=== PATIENT | female | born 1990 | race Caucasian/White ===

== ENCOUNTER 2017-10-21 07:51 | Observation (INO) ==
[2017-10-21 04:10] VITALS: BP 133/59
[2017-10-21 04:14] LABS: Bilirubin,Urine Negative (Negative); Blood,Urine Negative (Negative); Clarity,Urine Cloudy (Clear); Color,Urine Yellow (Yellow); Glucose,Urine (UA) Normal (Normal); Ketones,Urine Negative (Negative); Leukocyte Esterase,Urine Small (Negative); Nitrite,Urine Negative (Negative); Protein,Urine Negative (Neg-Trace); Urobilinogen,Urine Normal (Normal)
[2017-10-21 04:17] LABS: Bacteria,Urine Moderate per hpf (None-Few); Hyaline Casts,Urine None Seen per lpf (None-Few); Squamous Epithelial Cell,Urine Many per lpf (None-Few)
[2017-10-21 04:23] LABS: Amphetamine Screen,Urine Negative ng/mL (Cutoff=1000); Barbiturate Screen,Urine Negative ng/mL (Cutoff=200); Benzodiazepines Screen,Urine Negative ng/mL (Cutoff=200); Cannabinoid Screen,Urine Negative ng/mL (Cutoff = 50); Cocaine Screen,Urine Negative ng/mL (Cutoff= 300); Opiate Screen,Urine Negative ng/mL (Cutoff=300); Phencyclidine Screen,Urine Negative ng/mL (Cutoff=25)
--- NOTE | 2017-10-21 05:30 | OB/GYN Progress Note ---
Date of Encounter: 10/21/17 Time of Encounter: 05:19 - Assessment and Plan (1) 29 weeks gestation of Current Visit: Yes Status: Acute Pt sees Dr. Saucedo at [facility] for care. Unable to obtain records at this time because [facility] doesn't yet have the records from the physician's private office. (2) History of delivery, currently in third trimester Current Visit: Yes Status: Acute Pt is not on progesterone. Her earliest delivery was 32 weeks. (3) Placenta previa antepartum in third trimester Current Visit: Yes Status: Acute Unable to perform SVE at this time. SSE with cervix visually closed. Pt denies any evaluation for accreta (4) Previous delivery affecting Current Visit: Yes Status: Acute c/s x2 (5) Opiate abuse, continuous Current Visit: Yes Status: Acute Pt is on suboxone (6) Hepatitis C Current Visit: Yes Status: Acute Qualifiers: Viral hepatitis chronicity: chronic Hepatic coma status: without hepatic coma Qualified Code(s): B18.2 - Chronic viral hepatitis C (7) uterine contractions in third trimester, antepartum Current Visit: Yes Status: Acute Unable to assess SVE. FFN collected. Will await those results given cervix is visually closed on SSE. US for placental location ordered. Subjective - Subjective Interval history: 27 year-old presenting at 29w6d with c/o contractions that started around 0200 this am and have gotten stronger since. She was at work at [employer] and was brought to triage via ambulance. She reports scant amounts of clear mucus discharge. No gushes of fluid. No heavy bleeding but she does have spotting throughout this due to a placenta previa. She has a history of 2 prior deliveries. This has also been complicated by opiate use (on suboxone now), hepatitis C, and history of seizures. Antepartum ROS: vaginal bleeding (spotting throughout ), movement normal, contractions, no loss of fluid Objective - Vital Signs Vital Signs: Vital Signs Temp Pulse Resp BP 10/21/17 04:00 97.9 F 85 16 133/59 Intake and Output 10/20/17 10/20/17 10/21/17 15:59 23:59 07:59 Other: Weight 68 kg Patient Weight 10/21/17 23:59 Weight 68 kg - Exam FHR: category 1 FHR comments: 135 BPM, reactive NST Auscultation: bilateral: normal Abdomen: Present: soft, gravid. Absent: tenderness Uterus: Absent: tenderness Cervical dilation: visually closed. No SVE due to placenta previa. Comments: Thin, white discharge in vault. FFN collected. Pt denies intercourse since Wednesday. Vaginosis panel collected. - Labs Labs: Abnormal lab results Urine Clarity Cloudy (Clear) A 10/21/17 03:50 Ur Leukocyte Esterase Small (Negative) H 10/21/17 03:50 Urine Microscopic RBC 3-5 per hpf (0-3) H 10/21/17 03:50 Urine Microscopic WBC 5-15 per hpf (0-3) H 10/21/17 03:50 Ur Squamous Epith Cells Many per lpf (None-Few) H 10/21/17 03:50 Urine Bacteria Moderate per hpf (None-Few) H 10/21/17 03:50
[2017-10-21 06:47] LABS: Candida DNA Not Detected (Not Detect); Gardnerella DNA ***DETECTED*** (Not Detect); Trichomonas DNA Not Detected (Not Detect)
[2017-10-21 08:38] LABS: Candida DNA Not Detected (Not Detect); Gardnerella DNA ***DETECTED*** (Not Detect); Trichomonas DNA Not Detected (Not Detect)
--- NOTE | 2017-10-21 11:05 | OB/GYN Progress Note ---
Date of Encounter: 10/21/17 Time of Encounter: 11:03 - Assessment and Plan (1) 30 weeks gestation of Current Visit: Yes Status: Acute (2) Hepatitis C Current Visit: Yes Status: Acute Qualifiers: Viral hepatitis chronicity: chronic Hepatic coma status: without hepatic coma Qualified Code(s): B18.2 - Chronic viral hepatitis C (3) History of delivery, currently in third trimester Current Visit: Yes Status: Acute (4) Opiate abuse, continuous Current Visit: Yes Status: Acute (5) uterine contractions in third trimester, antepartum Current Visit: Yes Status: Acute Requesting to transfer to [place] [facility] for the rest of her care. She states she would like to join the [facility] through our clinic. Instructions given and cautioned that she may not be able to transfer at her gestation. labor precautions given Advised to follow up with her OB early next week Discharge home. (6) Previous delivery affecting Current Visit: Yes Status: Acute Subjective - Subjective Principal diagnosis: contractions Interval history: Ms. Galaviz now reports that her contractions have slowed. She reports she feels well enough to go home. Antepartum ROS: new complaints, movement normal, contractions, no loss of fluid, no vaginal bleeding Objective - Vital Signs Vital Signs: Vital Signs Temp Pulse Resp BP 10/21/17 04:00 97.9 F 85 16 133/59 Intake and Output 10/20/17 10/21/17 10/21/17 23:59 07:59 15:59 Other: Weight 68 kg Patient Weight 10/21/17 23:59 Weight 68 kg - Exam FHR: auscultation normal, category 1 FHR comments: Baseline 140 Moderate variability Accelerations present 10x10 Few variable decelerations FHR category I [place] shows irritability Auscultation: bilateral: normal Abdomen: Present: normal appearance, soft, gravid Uterus: Present: normal, firm - Labs Labs: Abnormal lab results Urine Clarity Cloudy (Clear) A 10/21/17 03:50 Ur Leukocyte Esterase Small (Negative) H 10/21/17 03:50 Urine Microscopic RBC 3-5 per hpf (0-3) H 10/21/17 03:50 Urine Microscopic WBC 5-15 per hpf (0-3) H 10/21/17 03:50 Ur Squamous Epith Cells Many per lpf (None-Few) H 10/21/17 03:50 Urine Bacteria Moderate per hpf (None-Few) H 10/21/17 03:50 [place] DNA Probe DETECTED (Not Detect) A 10/21/17 07:33
== END 2017-10-21 11:09 | disposition home or self-care (01) ==
LOC: 1NENULAB
PROVIDERS: ADMIT Registered Nurse; ATTEND Registered Nurse

== ENCOUNTER 2018-01-03 18:13 | Inpatient (IN) ==
[2018-01-03 17:17] LABS: Amphetamine Screen,Urine Negative ng/mL (Cutoff=1000); Barbiturate Screen,Urine Negative ng/mL (Cutoff=200); Benzodiazepines Screen,Urine Negative ng/mL (Cutoff=200); Cannabinoid Screen,Urine Negative ng/mL (Cutoff = 50); Cocaine Screen,Urine Negative ng/mL (Cutoff= 300); Opiate Screen,Urine Negative ng/mL (Cutoff=300); Phencyclidine Screen,Urine Negative ng/mL (Cutoff=25)
[~2018-01-03 18:13] MED LIST: CeFAZolin Premix DUPLEX 2,000 MG/50 ML BAG IVPB ONE; Famotidine 20 MG/2 ML VIAL IVP ONE; Metoclopramide 10 MG/2 ML VIAL IVP ONE; Oxytocin 20 units/ LR 1000 mL 20 UNIT/1,000 ML BAG IVC ONE; Oxytocin 20 units/ LR 1000 mL 20 UNIT/1,000 ML BAG IVC SCH; Ringers Solution, Lactated 1,000 ML IVC ONE
[2018-01-03 18:17] LABS: Basophils % 0.2 %; Eosinophils # 0.1 K/mcL (0.0-0.6); Hematocrit 33.3 % (35.3-44.9); Hemoglobin 10.6 g/dL (11.5-15.4); Immature Granulocytes % 0.3 % (0-4); Lymphocytes # 3.9 K/mcL (0.6-4.6); Lymphocytes % 31.8 %; Mean Corpuscular HGB Conc 31.8 g/dL (31.6-35.5); Mean Corpuscular Hemoglobin 27.4 pg (28.0-33.3); Mean Platelet Volume 11.2 fL (9.4-12.4); Monocytes # 0.7 K/mcL (0.0-1.3); Monocytes % 5.6 %; Neutrophils # 7.5 K/mcL (1.6-8.9); Platelet Count 282 K/mcL (140-400); Red Blood Count 3.87 M/mcL (3.82-4.97); Red Cell Distribution Width 13.7 % (11.5-14.5); Segmented Neutrophils % 61.1 %
--- NOTE | 2018-01-03 21:58 | OB/GYN History & Physical ---
Date of Encounter: 01/03/18 Time of Encounter: 21:48 Assessment and Plan (1) 39 weeks gestation of Current visit: Yes Status: Acute Pt at 39w6d gestation by 18 week u/s in ER presents in early labor. She has had limited PNC in [place]. Given fact that she is in early labor at nearly 40 weeks with limited care and 2 prior c-sections, will proceed with Rpt LTCS. (2) Hepatitis C Current visit: No Status: Acute Qualifiers: Viral hepatitis chronicity: chronic Hepatic coma status: without hepatic coma Qualified Code(s): B18.2 - Chronic viral hepatitis C (3) Opiate abuse, continuous Current visit: No Status: Acute (4) Previous delivery affecting Current visit: No Status: Acute Plan repeat, consent obtained. History of Present Illness Chief complaint: Labor, 39 weeks 6 days EGA HPI: Ms. Galaviz is a 27 year old female at 39w6d by 18 week u/s presents with c/o strong uc's. She denies vb or lof. has been complicated by limited PNC. Her initial visit was in our ER for spotting when init u/s was performed estabishing EDC. She also has opiate dependenece and hep C and is on Suboxone. She smokes 1PPD. Past Med Surg Social Fam HX - Past Medical History Source: patient, old records reviewed Medical history: no medical history, seizures Additional medical history: pt states had 100 seizures in life took meds when younger not on anything now Psychiatric history: no psych history - Past Surgical History Surgical History: , cholecystectomy Additional surgical history: pins placed then later removed in left hand - Social History Smoking Status: Current every day smoker Packs per day: 1/5 Smokeless Tobacco Status: No Alcohol use: none Drug use: other - Family History Sister Living Status: Still Living Hx Family Cardiac Disorders: No Hx Family Respiratory Disorders: No Hx Family Cancer: No Hx Family GI Disorders: No Hx Family Genitourinary Disorders: No Hx Family Endocrine Disorder: No Hx Family Musculoskeletal Disorders: No Hx Family Neuromuscular Disorders: No Hx Family Neurologic Disorders: No Hx Family HEENT Disorders: No Hx Family Autoimmune Disorders: No Hx Family Reproductive Disorders: No Hx Family Psychosocial Disorders: No Hx Family Medical Disorders: No Obstetrical History - Pregnancies : 5 Medications and Allergies Pnv with Ca,No.72/Iron/FA [Pnv Plus Multivit Tab] 1 each PO DAILY 06/11 [History] Buprenorphine HCl/Naloxone HCl [Suboxone 8 mg-2 mg Sl Film] 8 mg PO BID [History] 3 Allergy/AdvReac Type Severity Reaction Status Date / Time No Known Allergies Allergy Verified 01/03/18 16:17 Exam - Constitutional Constitutional: well developed, no acute distress - HEENT HEENT: EOMI, PERRL - Neck Neck exam: full ROM - Lungs Respiratory exam: CTAB - Cardiovascular Cardiovascular exam: RRR - Abdomen Abdomen: Present: gravid - Extremities Deep Tendon Reflex Grade: 2+ Normal - Comments Comments: fundus measures 35 cm (therefore is small for gestational age) Results Result Diagrams: 01/03/18 17:44 Abnormal lab results WBC 12.3 K/mcL (4.3-11.1) H 01/03/18 17:44 Hgb 10.6 g/dL (11.5-15.4) L 01/03/18 17:44 Hct 33.3 % (35.3-44.9) L 01/03/18 17:44 MCH 27.4 pg (28.0-33.3) L 01/03/18 17:44 All other labs normal. - VTE Reasons for not Prescribing Prophylaxis: Treatment not Indicated - Low risk for VTE
--- NOTE | 2018-01-03 23:07 | Anesthesia Evaluation PreOp ---
Date of Encounter: 01/03/18 Time of Encounter: 23:05 - Past History Planned Operation: Repeat csection/spinal Cardiac History: Denies any Significant Hx Pulmonary History: Smoker, Pack/yr (5pk/yr) INTEGRITY ANALYST History: Denies Any Significant HX Other Medical History: Hepatic (HepC), Other (Hx Heroine use until 4 months ago. Subutex use) Anesthesia History: No Prior Anesthetic Complications, Past Anesthesia : Yes Alcohol Use: none Drug use: other Medications and Allergies Pnv with Ca,No.72/Iron/FA [Pnv Plus Multivit Tab] 1 each PO DAILY 06/11 [History] Buprenorphine HCl/Naloxone HCl [Suboxone 8 mg-2 mg Sl Film] 8 mg PO BID [History] 3 Allergy/AdvReac Type Severity Reaction Status Date / Time No Known Allergies Allergy Verified 01/03/18 16:17 - Meds/Allergy Pre-op Review Medications Reviewed: Yes Allergies Reviewed: Yes Beta Blockers on Current Med List: No Anesthesia Results - Labs 01/03/18 17:44 Anesthesia Exam BP 108/67 P 58 R 18 T 36.5C Height: 5'5" Weight: 64.3kg NPO (# of Hours): 8 Pain Scale: 4 Pain Scale Used: Numeric (1 - 10) - HEENT Pupil (Motor): Pupils equal Mallampati: II Teeth: Edentulous Oral Opening: Greater than 3 - INTEGRITY ANALYST LOC: Oriented INTEGRITY ANALYST Motor: Normal RUE, Normal LUE, Normal RLE, Normal LLE, Normal Face INTEGRITY ANALYST Sensory: Normal: RUE, LUE, RLE, LLE, Face - Cardiac Rhythm: Regular Murmur: None JVD: No Carotid Bruit: No - Pulmonary Breath Sounds: bilateral Clear Respiratory Effort: Symmetrical Anesthesia Assess/Plan ASA Score: 2 Modified [place] Scale for Level of Consciousness: Cooperative, oriented, and tranquil Anesthetic Plan: Regional Autologous Blood: No Monitoring Plan: Standard Monitors Recovery Plan: PACU
[2018-01-03] MEDS ORDERED: *HR* HYDROmorphone (PF) 1 MG/ML SYRINGE IVP PRN (23:11)
[2018-01-03] MEDS ORDERED: Naloxone 0.4 MG/ML INJ IVP PRN (23:11)
[2018-01-03] MEDS ORDERED: Acetaminophen IV 1,000 MG/100 ML INFUS..BTL IVPB ONE (23:11)
[2018-01-03] MEDS ORDERED: *HR* Meperidine 25 MG/ML SYRINGE IVP PRN (23:11)
[2018-01-03] MEDS ORDERED: Ondansetron 4 MG/2 ML VIAL IVP ONE (23:11)
[2018-01-03] MEDS ORDERED: *HR* Promethazine 25 MG/ML VIAL IVP PRN (23:11)
[2018-01-03] MEDS ORDERED: Ketorolac 30 MG/ML VIAL IVP ONE (23:11)
[2018-01-03] MEDS ORDERED: Pregabalin 50 MG CAPSULE PO ONE (23:16)
[2018-01-04] MEDS ORDERED: Metoclopramide 10 MG/2 ML VIAL IVP ONE (01:45)
[2018-01-04] MEDS ORDERED: Famotidine 20 MG/2 ML VIAL IVP ONE (01:45)
[2018-01-04] MEDS ORDERED: Ringers Solution, Lactated 1,000 ML ONE (01:50)
[2018-01-04] MEDS ORDERED: CeFAZolin Premix DUPLEX 2,000 MG/50 ML BAG IVPB ONE (02:00)
[2018-01-04] MEDS ORDERED: Bupivacaine/PF 0.75% in Dex 2 ML AMPUL INFILT ONE (02:09)
[2018-01-04] MEDS ORDERED: Lidocaine -MPF 1% 5 ML AMPUL ONE (02:09)
[2018-01-04] MEDS ORDERED: Morphine Sulfate/PF 5mg/10mL Vial ONE (02:13)
[2018-01-04] MEDS ORDERED: Ondansetron 4 MG/2 ML VIAL ONE (02:39)
[2018-01-04] MEDS ORDERED: *HR* Oxytocin 10 UNIT/ML VIAL IM ONE (02:39)
[2018-01-04] MEDS ORDERED: Dexamethasone 4 MG/ML VIAL ONE (02:39)
--- NOTE | 2018-01-04 02:50 | Anesthesia Procedures ---
Date of Encounter: 01/04/18 Time of Encounter: 02:31 Procedures: Anesthesia - Epidural/Spinal Patient ID/Chart reviewed: Yes Patient examined: Yes OB Eval: Gestational age: 40. OB Eval: : 5 OB Eval: Hx Para: 4 OB Eval: Dilated at (cm): 3 OB Eval: Contractions: Non-stressed pattern Consent Obtained: Yes Supplemental Oxygen: None/Room Air Site Prep: Aseptic Technique, Sterile prep and drape, Povidone-Iodine 1% Patient position: upright Local Anesthetic: Lidocaine 1% Amount of Local Anesthetic used: 3 Interspace Used: L3-L4 Loss of Resistance (WALLY): No Blood: No CSF: Yes Paresthesia: No Spinal Needle Gauge: 25 Spinal Dose: Bupivicaine 0.75% 1.6ml morphine 250mcg Procedure: Spinal administered in upright position. Intrathecal dose administered 1st pass without any immediate noted complications. VSS Vitals + FHT's: See anesthesia OR record
--- NOTE | 2018-01-04 03:41 | OB/GYN Procedure Note ---
Section - Date of procedure: 01/04/18 Preop diagnosis: desires repeat , other (Labor, limited care, size less than dates, narcotics addiction, history of prior 2) Post-op diagnosis: same Procedure: section, repeat low transverse Surgeon: Luc Valdes Blood Loss: 300 Was there an assistant professor of spanish present: No Anesthesia Type: Spinal section complications: none Disposition: L&D Recovery Room Specimens: Placenta - (s) A Delivery Date: 01/04/18 Infant Delivery Time: 02:59 Presentation: vertex Gender: Female Viability: Viable Pounds: 5 Ounces: 9 at 1 minute: 8 at 5 minutes: 9 Shoulder Dystocia: not encountered Placenta: spontaneous Cord: 3 umbilical vessels - Narrative Narrative: Patient's 27-year-old 6 para 5 female presents in labor history of prior section 7 active contractions which she is breathing. She denies bleeding or leakage of fluid. She was noted to have small abdomen fundal height was 35 cm. Thinks it may concave a limited care narcotics addiction she is on Suboxone and smoking. Discussed with patient options decision made proceed with repeat section patient was aware operative risks and signed appropriate consent. Description procedure: Patient was taken operating room where spinal anesthesia was administered. She is prepped draped in usual sterile fashion. Bladder was drained of clear urine with Galeano catheter. Once adequate anesthesia was determined scalp was used to make Pfannenstiel skin incision. This was sharply take down the rectus fascia which was incised midline. Fascial incision was extended bilaterally rectus muscle divided in plane was developed and rectus muscles opened distally peritoneum was entered bluntly bladder blade was placed and bladder flap was developed and lower uterine segment. There is some adhesions from the bladder flap and the lower uterine segment which were taken down. Scalpel was used to make a low transverse uterine incision which was extended bluntly bilaterally. Membranes were ruptured clear fluid. Infant was delivered from vertex presentation. Cord was clamped cut and was handed nurse personnel who were in attendance. Placenta was delivered spontaneously uterine cavity was massaged free of all residual tissue. Uterus was closed 0 Vicryl running lock stitch. Second imbricating layer was placed for the first hemostasis was ensured. Again irrigation was performed hemostasis was ensured. Fascia was closed 0 Vicryl running manner. Skin edges reapproximated with 4- 0 Vicryl. All sponge and instruments counts are correct patient was taken recovery in good condition.
[2018-01-04] MEDS ORDERED: Ketorolac 30 MG/ML VIAL IVP ONE (05:45)
[2018-01-04] MEDS ORDERED: Ringers Solution, Lactated 1,000 ML IVC SCH (06:09)
[2018-01-04] MEDS ORDERED: Ondansetron 4 MG/2 ML VIAL IVP PRN (06:09)
[2018-01-04] MEDS ORDERED: Simethicone 80 MG TAB.CHEW PO PRN (06:09)
[2018-01-04] MEDS ORDERED: Sennosides 8.6 MG TABLET PO PRN (06:09)
[2018-01-04] MEDS ORDERED: Oxytocin 20 units/ LR 1000 mL 20 UNIT/1,000 ML BAG IVC SCH (06:09)
[2018-01-04] MEDS ORDERED: Rho Immune Globulin 1,500 UNIT SYRINGE IM ONE (06:09)
[2018-01-04] MEDS ORDERED: Metoclopramide 10 MG/2 ML VIAL IVP PRN (06:09)
[2018-01-04] MEDS: *HR* OxyCODONE/APAP 5/325 TABLET PO PRN ×3 (06:39→20:08)
--- NOTE | 2018-01-04 07:55 | Anesthesia Evaluation Post Op ---
Date of Encounter: 01/04/18 Time of Encounter: 06:00 - Vital Signs Vital Signs: Vital Signs Temperature 98.0 F 01/04/18 06:00 Pulse Rate 48 01/04/18 06:00 Respiratory Rate 14 01/04/18 06:00 Blood Pressure 125/72 01/04/18 06:00 O2 Sat by Pulse Oximetry 99 01/04/18 06:00 Temperature 98.0 F 01/04/18 07:00 Pulse Rate 50 01/04/18 07:00 Respiratory Rate 16 01/04/18 07:00 Blood Pressure 111/68 01/04/18 07:00 O2 Sat by Pulse Oximetry 97 01/04/18 07:00 - Lungs Lungs: Clear Ascult./Percussion - Airway Airway: Non-obstructed - Cardiovascular Regular Rate - Mental Status Mental Status: Alert & Oriented, Answers Appropriately - Pain Pain Scale: 7 (pt pain plan discussed with joshua. Subutex patient) Pain Scale used: Numeric (1 - 10) - Nausea Vomiting Nausea Vomiting: Responds to treatment with oral meds - Hydration Hydration: NPO, Galeano catheter - Discharge PostOp Status: Transfer Patient to floor
[2018-01-04] MEDS: Prenatal Vit/FA 1 EACH TABLET PO SCH (08:06)
[2018-01-04] MEDS: Ibuprofen 600 MG TABLET PO PRN ×2 (08:10→22:12)
[2018-01-04] MEDS ORDERED: *HR* Buprenorphine HCl 8 MG TAB.SUBL SL SCH (09:00)
[2018-01-05] MEDS: *HR* OxyCODONE/APAP 5/325 TABLET PO PRN ×4 (02:20→19:57)
[2018-01-05 04:32] LABS: Basophils % 0.1 %; Eosinophils # 0.1 K/mcL (0.0-0.6); Hemoglobin 10.2 g/dL (11.5-15.4); Immature Granulocytes % 0.4 % (0-4); Lymphocytes # 5.3 K/mcL (0.6-4.6); Lymphocytes % 37.2 %; Mean Corpuscular HGB Conc 31.9 g/dL (31.6-35.5); Mean Corpuscular Hemoglobin 28.2 pg (28.0-33.3); Mean Corpuscular Volume 88.4 fL (83.0-100.0); Mean Platelet Volume 11.2 fL (9.4-12.4); Monocytes # 0.8 K/mcL (0.0-1.3); Monocytes % 5.6 %; Neutrophils # 7.9 K/mcL (1.6-8.9); Platelet Count 264 K/mcL (140-400); Red Blood Count 3.62 M/mcL (3.82-4.97); Red Cell Distribution Width 13.5 % (11.5-14.5); Segmented Neutrophils % 55.7 %
[2018-01-05] MEDS: Prenatal Vit/FA 1 EACH TABLET PO SCH (08:05)
[2018-01-05] MEDS: Ibuprofen 600 MG TABLET PO PRN ×2 (08:05→22:35)
--- NOTE | 2018-01-05 23:22 | OB/GYN Progress Note ---
Date of Encounter: 01/05/18 Time of Encounter: 09:00 - Assessment and Plan (1) delivery delivered Current Visit: Yes Status: Acute Pt meeting POD1 milestones. She reports pain is moderately well controlled. Continue to monitor. Anticipate discharge home POD3-4. (2) Hepatitis C Current Visit: No Status: Acute Qualifiers: Viral hepatitis chronicity: chronic Hepatic coma status: without hepatic coma Qualified Code(s): B18.2 - Chronic viral hepatitis C (3) Opiate abuse, continuous Current Visit: No Status: Acute Subjective - Subjective Patient reports: appetite normal, voiding normally, pain well controlled, ambulating normally Guy: doing well Objective - Vital Signs Latest vital signs: Vital Signs Temp Pulse Resp BP Pulse Ox 01/05/18 19:35 97.9 F 81 12 118/75 98 01/05/18 07:58 97.9 F 73 16 108/63 98 01/04/18 23:45 97.9 F 65 14 104/61 98 - Exam Lungs: bilateral: normal Chest: Normal S1, Normal S2 Extremities: Present: normal Abdomen: Present: soft Incision: Present: dry, intact (no s/sx infection) Uterus: Present: firm - Labs Labs: Laboratory Results - last 24 hr 01/05/18 03:58 WBC 14.2 H RBC 3.62 L Hgb 10.2 L Hct 32.0 L MCV 88.4 MCH 28.2 MCHC 31.9 RDW 13.5 Plt Count 264 MPV 11.2 Immature Gran % 0.4 Seg Neutrophils % 55.7 Lymphocytes % 37.2 Monocytes % 5.6 Eosinophils % 1.0 Basophils % 0.1 Neutrophils # 7.9 Lymphocytes # 5.3 H Monocytes # 0.8 Eosinophils # 0.1 Basophils # 0.0
[2018-01-06] MEDS: *HR* OxyCODONE/APAP 5/325 TABLET PO PRN ×2 (02:10→08:13)
[2018-01-06] MEDS: Prenatal Vit/FA 1 EACH TABLET PO SCH (08:13)
[2018-01-06 09:01] VITALS: BP 106/60
--- NOTE | 2018-01-06 10:38 | Discharge Summary ---
Date of Encounter: 01/06/18 Time of Encounter: 10:36 - Discharge Diagnosis (1) anemia Priority: Secondary Status: Acute Comments: Will discharge home on iron. (2) delivery delivered Priority: Primary Status: Acute Comments: Stable POD #2, meeting all milestones, tolerates diet, pain well managed, desires to start Depopovera for contraception and desires discharge. - Discharge Medications Prescriptions: Ibuprofen [Motrin] 600 mg PO Q6HR PRN #60 tablet PRN Reason: Cramping Docusate [Colace] 100 mg PO BID #60 capsule Ferrous Sulfate 325 mg PO DAILY #60 tablet Home Medications: Pnv with Ca,No.72/Iron/FA [Pnv Plus Multivit Tab] 1 each PO DAILY 06/11 [History] Buprenorphine HCl/Naloxone HCl [Suboxone 8 mg-2 mg Sl Film] 8 mg PO BID [History] Docusate [Colace] 100 mg PO BID #60 capsule 01/06/18 [Rx] Ferrous Sulfate 325 mg PO DAILY #60 tablet 01/06/18 [Rx] Ibuprofen [Motrin] 600 mg PO Q6HR PRN #60 tablet 01/06/18 [Rx] Vit/FA 1 each PO DAILY tablet 01/06/18 [Rx] Simethicone [Gas-X] 80 mg PO TID PRN tab.chew 01/06/18 [Rx] Allergies/Adverse Reactions: 3 Allergy/AdvReac Type Severity Reaction Status Date / Time No Known Allergies Allergy Verified 01/03/18 16:17 Data Procedures and tests throughout hospitalization: Laboratory Tests 01/03/18 01/03/18 01/05/18 16:29 17:44 03:58 WBC 12.3 H 14.2 H RBC 3.87 3.62 L Hgb 10.6 L 10.2 L Hct 33.3 L 32.0 L MCV 86.0 88.4 MCH 27.4 L 28.2 MCHC 31.8 31.9 RDW 13.7 13.5 Plt Count 282 264 MPV 11.2 11.2 Immature Gran % 0.3 0.4 Seg Neutrophils % 61.1 55.7 Lymphocytes % 31.8 37.2 Monocytes % 5.6 5.6 Eosinophils % 1.0 1.0 Basophils % 0.2 0.1 Neutrophils # 7.5 7.9 Lymphocytes # 3.9 5.3 H Monocytes # 0.7 0.8 Eosinophils # 0.1 0.1 Basophils # 0.0 0.0 Urine Opiates Screen Negative Ur Barbiturates Screen Negative Ur Phencyclidine Scrn Negative Ur Amphetamines Screen Negative U Benzodiazepines Scrn Negative Urine Cocaine Screen Negative U Marijuana (THC) Screen Negative Date of admission: 01/03/18 18:13 Primary care physician: PCP NONE Consults: 01/04/18 06:09 Consult to Spinning Bath Patroller ([facility]&C) [CONS] Routine Reason For Exam: Reason for SW Consult: narcotics addiction Discharging clinician: Morena Martínez Anticipated date of discharge: 01/06/18 - Patient Status Disposition: Home, Self-Care Condition: Good Functional capacity at discharge: independent ambulation Overall status at discharge: patient is back to baseline - Discharge Instructions Instructions: Anemia (GEN) Follow Up With: NONE,PCP [Primary Care Provider] - - Diet and Activity Activity: resume usual activities as tolerated Diet: regular diet Hospital Course Reason for admission: section, IUP at term Delivery: section Episiotomy: none Laceration: none Other procedures: none complications: none Discharge diagnosis: IUP at term delivered [place] baby: female Hospital course: Section - Date of procedure: 01/04/18 Preop diagnosis: desires repeat , other (Labor, limited care, size less than dates, narcotics addiction, history of prior 2) Post-op diagnosis: same Procedure: section, repeat low transverse Surgeon: Luc Monahan Quantitated Blood Loss: 300 Was there an car rental sales assistant present: No Anesthesia Type: Spinal section complications: none Disposition: L&D Recovery Room Specimens: Placenta - (s) Infant A Infant Delivery Date: 01/04/18 Delivery Time: 02:59 Presentation: vertex Gender: Female Viability: Viable Pounds: 5 Ounces: 9 at 1 minute: 8 at 5 minutes: 9 Shoulder Dystocia: not encountered Placenta: spontaneous Cord: 3 umbilical vessels Stable in PP and appropriate for discharge. Time Attestation: Total time spent providing and/or coordinating discharge services: - VTE Reasons for not Prescribing Prophylaxis: Treatment not Indicated - Low risk for VTE Documentation of Mechanical Device: Intermittent pneumatic compression device Exam - Constitutional Vitals: Temp Pulse Resp BP Pulse Ox 97.9 F 60 16 106/60 100 01/06/18 08:00 01/06/18 08:00 01/06/18 08:00 01/06/18 08:00 01/06/18 08:00 General appearance IM: A&O X 3, pleasant, no acute distress - Respiratory Respiratory exam: Present: CTAB - Cardiovascular Cardiovascular exam IM: Present: RRR - GI/Abdominal GI/Abdominal exam IM: soft Incision: intact - Uterine Tone: Firm Uterus Position: 1 Finger Below Umbilicus - Extremities Exam Extremities exam IM: Present: normal capillary refill, normal inspection - Neurological Exam Neurological exam: normal gait, oriented X3 - Psychiatric Additional comments: reports good mood.
== END 2018-01-06 18:23 | disposition home or self-care (01) | DRG 540 ==
LOC: 1NENULAB → 1NENUOBS 01-04 06:09
PROVIDERS: ADMIT Obstetrics & Gynecology; ATTEND Obstetrics & Gynecology